=== PATIENT | male | born 2000 | race Caucasian/White ===

== ENCOUNTER 2019-02-08 20:26 | Emergency (ER) | payer OTHER ==
--- NOTE | 2019-02-08 21:19 | ED ---
Abdominal Pain HPI - General Chief Complaint: Abdominal Pain Stated Complaint: Abd pain Time Seen by Provider: 02/08/19 21:18 Source: patient Mode of arrival: ambulatory Limitations: no limitations - History of Present Illness Initial Comments: Isrrael is a 17-year-old male who presents to the emergency department today for evaluation of left lower quadrant abdominal pain that began around 2 AM and is progressively worsened throughout the day. Pain is not associated with any nausea vomiting or change in bowel or bladder habits. Last bowel movement was 1-2 days ago and was normal in color caliber and consistency. He has no history of GI pathology no history of ulcers colitis or Crohn's. No history of any surgeries in the abdomen. No history of kidney stones. Patient denies any concern for sexual transmitted infection denies any penile discharge. - Related Data Previous Rx's Medication Instructions Recorded Amoxicillin 500 mg PO BID 10 Days #20 capsule 02/08/19 Allergies Allergy/AdvReac Type Severity Reaction Status Date / Time No Known Allergies Allergy Verified 02/08/19 20:55 Review of Systems ROS Statement: Those systems with pertinent positive or pertinent negative responses have been documented in the HPI. ROS Other: All systems not noted in ROS Statement are negative. Past Medical History Past Medical History: Unable to Obtain Additional Past Medical History / Comment(s): poor historian History of Any Multi-Drug Resistant Organisms: None Reported Past Surgical History: Unable to Obtain Additional Past Surgical History / Comment(s): poor historian Past Psychological History: No Psychological Hx Reported Smoking Status: Never smoker Past Alcohol Use History: None Reported Past Drug Use History: None Reported General Exam - General Exam Comments Initial Comments: Physical Exam GENERAL: appears uncomfortable HENT: Normocephalic, Atraumatic. Left otitis media EYES: PERRL, EOMI PULMONARY: Unlabored respirations. No audible rales rhonchi or wheezing was noted. CARDIOVASCULAR: There is a regular rate and rhythm without any murmurs gallops or rubs. ABDOMEN: Voluntary guarding in bilateral lower quadrants SKIN: Skin is clear with no lesions or rashes and otherwise unremarkable. : Deferred NEUROLOGIC: Patient is alert and oriented x3. Moving all extremities spontaneously MUSCULOSKELETAL: Normal extremities with adequate strength and full range of motion. No lower extremity swelling or edema. No calf tenderness. PSYCHIATRIC: Normal psychiatric evaluation. Limitations: no limitations Course Vital Signs 02/08/19 02/08/1919 20:54 23:31 00:48 Temperature 98.1 F 98.3 F Pulse Rate 76 59 L 78 Respiratory 18 16 18 Rate Blood Pressure 118/81 97/63 134/90 O2 Sat by Pulse 99 100 100 Oximetry Medical Decision Making - Medical Decision Making She was seen and evaluated history was obtained from the patient History and physical exam revealed bilateral lower quadrant tenderness as well as a left otitis media Urinalysis concerning for urinary tract infection, on further evaluation patient again denies any possibility of sexual transmitted infection, declines testing but is agreeable to them. Treatment. Genitourinary exam was performed by Christophe CORREA, Per patient's preference, who reported normal external exam with no acute pathology identified CT with no acute findings This time I suspect the patient's lower abdominal symptoms are secondary to urinary tract infection. Patient will be treated for UTI as well as empiric treatment for sexual transmitted infections. All cushions pertaining care were answered return parameters discussed patient discharged home in stable condition. - Lab Data Result diagrams: 02/08/19 22:05 02/08/19 22:05 Lab Results 02/08/19 02/08/19 02/08/19 Range/Units 22:05 22:05 22:51 WBC 9.6 (4.0-11.0) k/uL RBC 4.90 (4.30-5.90) m/uL Hgb 15.4 (13.0-17.5) gm/dL Hct 45.1 (39.0-53.0) % MCV 92.1 (80.0-100.0) fL MCH 31.6 (25.0-35.0) pg MCHC 34.3 (31.0-37.0) g/dL RDW 12.8 (11.5-15.5) % Plt Count 237 (150-450) k/uL Neutrophils % 64 % Lymphocytes % 20 % Monocytes % 9 % Eosinophils % 4 % Basophils % 1 % Neutrophils # 6.2 (1.3-7.7) k/uL Lymphocytes # 1.9 (1.0-4.8) k/uL Monocytes # 0.8 (0-1.0) k/uL Eosinophils # 0.4 (0-0.7) k/uL Basophils # 0.1 (0-0.2) k/uL Sodium 141 (137-145) mmol/L Potassium 3.8 (3.5-5.1) mmol/L Chloride 105 (98-107) mmol/L Carbon Dioxide 28 (22-30) mmol/L Anion Gap 8 mmol/L BUN 8 L (9-20) mg/dL Creatinine 0.78 (0.66-1.25) mg/dL Est GFR (CKD-EPI)AfAm >90 (>60 ml/min/1.73 sqM) Est GFR (CKD-EPI)NonAf >90 (>60 ml/min/1.73 sqM) Glucose 89 (74-99) mg/dL Calcium 9.8 (8.4-10.2) mg/dL Total Bilirubin 0.6 (0.2-1.3) mg/dL AST 23 (17-59) U/L ALT 19 (4-49) U/L Alkaline Phosphatase 104 (38-126) U/L Total Protein 7.6 (6.3-8.2) g/dL Albumin 4.5 (3.5-5.0) g/dL Amylase 81 (30-110) U/L Lipase 27 (23-300) U/L Urine Color Yellow Urine Appearance Clear (Clear) Urine pH 7.0 (5.0-8.0) Ur Specific [place] 1.019 (1.001-1.035) Urine Protein Trace H (Negative) Urine Glucose (UA) Negative (Negative) Urine Ketones 1+ H (Negative) Urine Blood Negative (Negative) Urine Nitrite Negative (Negative) Urine Bilirubin Negative (Negative) Urine Urobilinogen 2.0 (<2.0) mg/dL Ur Leukocyte Esterase Moderate H (Negative) Urine RBC 1 (0-5) /hpf Urine WBC 18 H (0-5) /hpf Urine Mucus Rare H (None) /hpf Disposition Clinical Impression: UTI (urinary tract infection), Left otitis media Disposition: HOME SELF-CARE Condition: Stable Instructions (If sedation given, give patient instructions): Urinary Tract Infection in Men (ED) Prescriptions: Amoxicillin 500 mg PO BID 10 Days #20 capsule Is patient prescribed a controlled substance at d/c from ED?: No Referrals: None,Stated [Primary Care Provider] - 1-2 days
[2019-02-08] MEDS ORDERED: SODIUM CHLORIDE 0.9% 1,000 ML IV STA (21:33)
[2019-02-08 22:23] LABS: Basophils # (A) 0.1 k/uL (0-0.2); Basophils % (A) 1 %; Eosinophils # (A) 0.4 k/uL (0-0.7); Eosinophils % (A) 4 %; HCT 45.1 % (39.0-53.0); HGB 15.4 gm/dL (13.0-17.5); Lymphocytes # (A) 1.9 k/uL (1.0-4.8); Lymphocytes % (A) 20 %; MCH 31.6 pg (25.0-35.0); MCHC 34.3 g/dL (31.0-37.0); MCV 92.1 fL (80.0-100.0); Monocytes # (A) 0.8 k/uL (0-1.0); Monocytes % (A) 9 %; Neutrophils # (A) 6.2 k/uL (1.3-7.7); Neutrophils % (A) 64 %; Platelet Count 237 k/uL (150-450); RDW 12.8 % (11.5-15.5); WBC 9.6 k/uL (4.0-11.0)
[2019-02-08 22:40] LABS: ALT 19 U/L (4-49); AST 23 U/L (17-59); African American GFR (CKD) >90 (>60 ml/min/1.73 sqM); Albumin 4.5 g/dL (3.5-5.0); Alkaline Phosphatase 104 U/L (38-126); Amylase 81 U/L (30-110); Anion Gap 8 mmol/L; Blood Urea Nitrogen 8 mg/dL (9-20); Calcium 9.8 mg/dL (8.4-10.2); Carbon Dioxide 28 mmol/L (22-30); Chloride 105 mmol/L (98-107); Glucose 89 mg/dL (74-99); Non-African American GFR(CKD) >90 (>60 ml/min/1.73 sqM); Potassium 3.8 mmol/L (3.5-5.1); Sodium 141 mmol/L (137-145); Total Bilirubin 0.6 mg/dL (0.2-1.3); Total Protein 7.6 g/dL (6.3-8.2)
[2019-02-08 23:19] LABS: Appearance,Urine Clear (Clear); Bilirubin,Urine Negative (Negative); Blood,Urine Negative (Negative); Color,Urine Yellow; Glucose,Urine (UA) Negative (Negative); Ketones,Urine 1+ (Negative); Leukocyte Esterase,Urine Moderate (Negative); Mucus,Urine Rare /hpf; Nitrite,Urine Negative (Negative); Protein,Urine Trace (Negative); RBC,Urine 1 /hpf (0-5); Specific Gravity,Urine 1.019 (1.001-1.035); WBC,Urine 18 /hpf (0-5)
--- NOTE | 2019-02-08 23:19 | CT ---
EXAMINATION TYPE: CT abdomen pelvis w con DATE OF EXAM: 02/08/2019 COMPARISON: 06/02/2017 HISTORY: Patient presents with abdominal pain. CT DLP: 482.7 mGycm Automated exposure control for dose reduction was used. CONTRAST: Performed with IV Contrast, patient injected with 100mL mL of Isovue 300. Lung bases are clear. There is no pleural effusion. Heart appears normal. Liver spleen pancreas gallbladder stomach appear normal. Bile ducts are not dilated. There is no adrenal mass. Kidneys show satisfactory contrast opacification. There is no hydronephrosi s. Ureters are not dilated. There is no retroperitoneal adenopathy. Bladder is almost empty. There is no inguinal hernia. There is tiny amount of free fluid in the pelvis. There is no mesenteric edema. There is no ascites or free air. There is no evidence of a bowel obstru ction. Appendix is not seen with certainty. There is no sign of thickened appendix. The lumbar vertebra have normal alignment. Posterior elements are intact. There is no compression fra cture. Bony pelvis is intact. IMPRESSION: Negative CT scan abdomen and pelvis. I do not see a cause for abdominal pain.
[2019-02-08] MEDS ORDERED: PHENAZOPYRIDINE 200 MG TAB PO STA (23:29)
[2019-02-08] MEDS ORDERED: AZITHROMYCIN 500 MG TAB PO STA (23:56)
[2019-02-08] MEDS ORDERED: cefTRIAXone 250 MG VIAL IM STA (23:56)
[2019-02-09 00:49] VITALS: BP 134/90; PULSE 78; RESP 18; TEMP 98.3
== END 2019-02-09 00:50 | disposition home or self-care (01) ==
LOC: EC 20:26
DX: N39.0 Urinary tract infection, site not specified (principal); H66.92 Otitis media, unspecified, left ear; A64 Unspecified sexually transmitted disease
CPT/HCPCS: 36415; 80053; 82150; 83690; 85025; 81001; 87086; 74177; 99284; 96365; 96372; J0696 ×2; Q9967

== ENCOUNTER 2020-04-27 10:46 | Emergency (ER) | payer OTHER ==
[2020-04-27 10:52] VITALS: BP 128/80; PULSE 75; RESP 18; TEMP 98
--- NOTE | 2020-04-27 11:16 | ED ---
Abdominal Pain HPI - General Chief Complaint: Abdominal Pain Stated Complaint: Hernia Time Seen by Provider: 04/27/20 10:55 Source: patient, RN notes reviewed Mode of arrival: ambulatory Limitations: no limitations - History of Present Illness Initial Comments: 19-year-old male presents emergency Department chief complaint of left-sided groin, scrotal pain and swelling. Patient states her bilateral one week ago. Patient states it started after he lifted a large foam roll. Patient states he felt instant pain. Patient states the pain is anticipated surgery presents to the emergency Department. He denies any nausea vomiting diarrhea constipation. No dysuria no hematuria. - Related Data Previous Rx's Medication Instructions Recorded Amoxicillin 500 mg PO BID 10 Days #20 capsule 02/08/19 Ibuprofen [Motrin] 600 mg PO Q8HR PRN #20 tab 04/27/20 Allergies Allergy/AdvReac Type Severity Reaction Status Date / Time No Known Allergies Allergy Verified 04/27/20 10:52 Review of Systems ROS Statement: Those systems with pertinent positive or pertinent negative responses have been documented in the HPI. ROS Other: All systems not noted in ROS Statement are negative. Past Medical History Past Medical History: No Reported History Additional Past Medical History / Comment(s): poor historian History of Any Multi-Drug Resistant Organisms: None Reported Past Surgical History: No Surgical Hx Reported Additional Past Surgical History / Comment(s): poor historian Past Psychological History: No Psychological Hx Reported Smoking Status: Current every day smoker Past Alcohol Use History: None Reported Past Drug Use History: None Reported General Exam Limitations: no limitations General appearance: alert, in no apparent distress Head exam: Present: atraumatic, normocephalic, normal inspection Neck exam: Present: normal inspection. Absent: tenderness, meningismus, lymphadenopathy Respiratory exam: Present: normal lung sounds bilaterally. Absent: respiratory distress, wheezes, rales, rhonchi, stridor Cardiovascular Exam: Present: regular rate, normal rhythm, normal heart sounds. Absent: systolic murmur, diastolic murmur, rubs, gallop, clicks GI/Abdominal exam: Present: soft, normal bowel sounds, hernia (Left inguinal reducible). Absent: distended, tenderness, guarding, rebound, rigid exam: Present: testicular tenderness, scrotal swelling, other (Hernia palpated) Back exam: Absent: CVA tenderness (R), CVA tenderness (L) Neurological exam: Present: alert Skin exam: Present: warm, dry, intact, normal color. Absent: rash Course Vital Signs 04/27/20 10:47 Temperature 98.0 F Pulse Rate 75 Respiratory 18 Rate Blood Pressure 128/80 O2 Sat by Pulse 99 Oximetry Medical Decision Making - Medical Decision Making Ultrasound does not reveal evidence of hernia though does show varicocele. Patient likely has a hernia. Patient will follow-up with surgeon return parameters discussed. Disposition Clinical Impression: Left inguinal hernia, Left varicocele Disposition: HOME SELF-CARE Condition: Stable Instructions (If sedation given, give patient instructions): Inguinal Hernia (ED), Varicocele (ED) Additional Instructions: Please return to the Emergency Department if symptoms worsen or any other concerns. Prescriptions: Ibuprofen [Motrin] 600 mg PO Q8HR PRN #20 tab PRN Reason: Pain Is patient prescribed a controlled substance at d/c from ED?: No Referrals: None,Stated [Primary Care Provider] - 1-2 days Falguni Gallegos MD [STAFF PHYSICIAN] - 1-2 days Time of Disposition: 12:16
--- NOTE | 2020-04-27 12:09 | US ---
EXAMINATION TYPE: US groin LT DATE OF EXAM: 04/27/2020 COMPARISON: NONE CLINICAL HISTORY: pain swelling. Pain left patient lifting heavy things. Scanned left groin area no evidence of hernia visualized. IMPRESSION: No diagnostic evidence of hernia. If symptoms persist consider CT scan.
--- NOTE | 2020-04-27 12:11 | US ---
EXAMINATION TYPE: US scrotum with doppler. Grayscale and color Doppler Duplex imaging performed of lars yen scrotum. DATE OF EXAM: 04/27/2020 COMPARISON: NONE CLINICAL HISTORY: pain swelling. Pain left patient heavy lifting. EXAM MEASUREMENTS: TESTICLES: Right Testicle: 4.2 x 1.9 x 3.5 cm Left Testicle: 4.1 x 1.8 x 2.6 cm EPIDIDYMIS HEAD: Right Epididymis: .7 x .8 cm Left Epididymis: Not well visualized. Doppler performed to assess for testicular vascularity; good bilateral color flow and waveforms are s een. There is no evidence of testicular torsion. Presence of hydroceles: no Presence of varicoceles: Yes left. IMPRESSION: 1. Left-sided varicocele
[2020-04-27] MEDS ORDERED: ACET/COD 300 MG/30 MG STARTER PACK 6 TAB BTL PO STA (12:16)
== END 2020-04-27 12:35 | disposition home or self-care (01) ==
LOC: EC 10:46
DX: I86.1 Scrotal varices (principal); K40.90 Unilateral inguinal hernia, without obstruction or gangrene, not specified as recurrent; F17.200 Nicotine dependence, unspecified, uncomplicated
CPT/HCPCS: 76870; 93975; 99284

== ENCOUNTER 2021-08-25 17:32 | Emergency (ER) | payer OTHER ==
[2021-08-25 17:41] VITALS: BP 121/78; PULSE 93; RESP 20; TEMP 98.2
[2021-08-25] MEDS ORDERED: LIDOCAINE 1% INJ 10MG/ML (5 ML VIAL-PF) SQ ONE (17:51)
[2021-08-25] MEDS ORDERED: HYDROcodone/APAP 7.5-325MG 1 EACH TAB PO ONE (17:52)
--- NOTE | 2021-08-25 18:39 | ED ---
Upper Extremity HPI - General Chief Complaint: Extremity Injury, Upper Stated Complaint: Fish Hook in finger Time Seen by Provider: 08/25/21 17:43 Source: patient Mode of arrival: ambulatory Limitations: no limitations - History of Present Illness Initial Comments: Patient is a 21-year-old male who presents with fishhook in his right middle finger. Patient reports moderate pain. No numbness and tingling. States last tetanus was 3 years ago. - Related Data Previous Rx's Medication Instructions Recorded Amoxicillin 500 mg PO BID 10 Days #20 capsule 02/08/19 Ibuprofen [Motrin] 600 mg PO Q8HR PRN #20 tab 04/27/20 Allergies Allergy/AdvReac Type Severity Reaction Status Date / Time No Known Allergies Allergy Verified 08/25/21 17:41 Review of Systems ROS Statement: Those systems with pertinent positive or pertinent negative responses have been documented in the HPI. ROS Other: All systems not noted in ROS Statement are negative. Past Medical History Past Medical History: No Reported History Additional Past Medical History / Comment(s): poor historian History of Any Multi-Drug Resistant Organisms: None Reported Past Surgical History: No Surgical Hx Reported Additional Past Surgical History / Comment(s): poor historian Past Psychological History: No Psychological Hx Reported Smoking Status: Current every day smoker Past Alcohol Use History: None Reported Past Drug Use History: None Reported General Exam Limitations: no limitations General appearance: alert, in no apparent distress Head exam: Present: atraumatic, normocephalic, normal inspection Respiratory exam: Present: normal lung sounds bilaterally. Absent: respiratory distress, wheezes, rales, rhonchi, stridor Cardiovascular Exam: Present: regular rate, normal rhythm, normal heart sounds. Absent: systolic murmur, diastolic murmur, rubs, gallop, clicks Extremities exam: Present: full ROM, other (fish hook over tip of right middle finger. Neurovascularly intact) Neurological exam: Present: alert, oriented X3, CN II-XII intact Psychiatric exam: Present: normal affect, normal mood Skin exam: Present: warm, dry, intact, normal color. Absent: rash Course Vital Signs 08/25/21 17:39 Temperature 98.2 F Pulse Rate 93 Respiratory 20 Rate Blood Pressure 121/78 O2 Sat by Pulse 99 Oximetry Procedures - Forgein Body Removal Soft Tissue Consent Obtained: verbal consent Site: upper extremity (right middle finger) Anesthetic Used: lidocaine 1% Foreign Body Suspected: Fish Hook Foreign Body Removed: yes Foreign Body Removal Technique: Instrumentation Patient Tolerated Procedure: well, no complications Medical Decision Making - Medical Decision Making This is a 21-year-old male who presents with fishhook in right middle finger. Thorough history and examination were performed. The fishhook is located at the tip of the right middle finger anteriorly. Neurovascularly intact. The region was cleaned thoroughly. A nerve block was performed. The fishhook was removed without complication. Patient tolerated the procedure well. Wound care education discussed in detail. Patient to follow up with his primary care provider in one to 2 days. Return parameters discussed. Patient verbalizes understanding and is agreeable to this plan. Dr. Jacobsen is my attending. Disposition Clinical Impression: [place] injury to finger Disposition: HOME SELF-CARE Condition: Good Instructions (If sedation given, give patient instructions): Acute Wound Care (ED) Additional Instructions: Keep wound clean and dry. Wash with mild soap. Follow-up with primary care provider in one to 2 days. Return to the emergency department experience new, concerning, or worsening symptoms. Is patient prescribed a controlled substance at d/c from ED?: No Referrals: None,Stated [Primary Care Provider] - 1-2 days Time of Disposition: 18:39
== END 2021-08-25 18:54 | disposition home or self-care (01) ==
LOC: EC 17:32
DX: S60.452A Superficial foreign body of right middle finger, initial encounter (principal); F17.200 Nicotine dependence, unspecified, uncomplicated; W45.8XXA Other foreign body or object entering through skin, initial encounter
CPT/HCPCS: 20520; 99283; J2001

== ENCOUNTER 2022-08-27 02:22 | Inpatient (IN) | payer MEDICAID, OTHER ==
[2022-08-27] MEDS ORDERED: hydrOXYzine HCL 25 MG TAB PO PRN (05:19)
[2022-08-27] MEDS ORDERED: MAG HYDROX/AL HYDROX/SIMETH 30 ML CUP PO PRN (05:19)
[2022-08-27] MEDS ORDERED: hydrOXYzine HCL 50 MG/ML 1 ML VIAL IM PRN (05:19)
[2022-08-27] MEDS ORDERED: ACETAMINOPHEN TAB 325 MG TAB PO PRN (05:19)
[2022-08-27] MEDS ORDERED: MAGNESIUM HYDROXIDE 2,400 MG/30 ML CUP PO PRN (05:19)
[2022-08-27] MEDS ORDERED: ALBUTEROL INHALER 60 PUFF/8 GM INHALER (MHU) INHALATION PRN (05:23)
[2022-08-27 07:41] LABS: Basophils % (A) 0 %; Eosinophils # (A) 0.1 k/uL (0-0.7); Eosinophils % (A) 1 %; HCT 50.3 % (39.0-53.0); HGB 16.6 gm/dL (13.0-17.5); Lymphocytes # (A) 2.1 k/uL (1.0-4.8); Lymphocytes % (A) 15 %; MCH 31.6 pg (25.0-35.0); MCHC 32.9 g/dL (31.0-37.0); Mean Platelet Volume 7.7; Monocytes # (A) 0.8 k/uL (0-1.0); Monocytes % (A) 6 %; Neutrophils # (A) 10.4 k/uL (1.3-7.7); Neutrophils % (A) 76 %; Platelet Count 305 k/uL (150-450); RBC 5.24 m/uL (4.30-5.90); RDW 12.4 % (11.5-15.5); WBC 13.7 k/uL (3.8-10.6)
[2022-08-27 07:54] LABS: ALT 26 U/L (4-49); AST 28 U/L (17-59); African American GFR (CKD) >90 (>60 ml/min/1.73 sqM); Albumin 4.9 g/dL (3.5-5.0); Alkaline Phosphatase 63 U/L (38-126); Anion Gap 11 mmol/L; Bilirubin, Delta 0.2 mg/dL (0.0-0.2); Bilirubin,Unconjugated 0.7 mg/dL (0.0-1.1); Blood Urea Nitrogen 9 mg/dL (9-20); Calcium 9.8 mg/dL (8.4-10.2); Carbon Dioxide 27 mmol/L (22-30); Chloride 102 mmol/L (98-107); Glucose 104 mg/dL (74-99); Non-African American GFR(CKD) >90 (>60 ml/min/1.73 sqM); Potassium 4.6 mmol/L (3.5-5.1); Sodium 140 mmol/L (137-145); Total Bilirubin 0.9 mg/dL (0.2-1.3); Total Protein 7.8 g/dL (6.3-8.2)
--- NOTE | 2022-08-27 08:49 | ED ---
Psych HPI - General Chief Complaint: Psychiatric Symptoms Stated Complaint: Mental health Time Seen by Provider: 08/27/22 02:46 Source: police Mode of arrival: ambulatory - History of Present Illness Initial Comments: 22-year-old male presents to the emergency department after a suicide attempt. Patient is brought in by police. They were called to a house where it was reported that the patient attempted to hang himself with a [employer]. Girlfriend had to come down. He states that he got in an argument with his girlfriend and walked out of the house. States he was walking down the road when please caught up with him. He denies attempting to harm himself. He denies depression or history of psychiatric disease. He denies alcohol and drug use. No alleviating, precipitating modifying factors - Related Data Previous Rx's Medication Instructions Recorded Amoxicillin 500 mg PO BID 10 Days #20 capsule 02/08/19 Ibuprofen [Motrin] 600 mg PO Q8HR PRN #20 tab 04/27/20 Allergies Allergy/AdvReac Type Severity Reaction Status Date / Time No Known Allergies Allergy Verified 08/27/22 05:25 Review of Systems ROS Statement: Those systems with pertinent positive or pertinent negative responses have been documented in the HPI. ROS Other: All systems not noted in ROS Statement are negative. Past Medical History Past Medical History: No Reported History Additional Past Medical History / Comment(s): poor historian History of Any Multi-Drug Resistant Organisms: None Reported Past Surgical History: No Surgical Hx Reported Additional Past Surgical History / Comment(s): poor historian Past Psychological History: No Psychological Hx Reported Smoking Status: Current every day smoker, Vaper Past Alcohol Use History: Occasional Past Drug Use History: Marijuana General Exam Limitations: no limitations Course Vital Signs 08/27/22 02:30 Temperature 99.1 F Pulse Rate 105 H Respiratory 18 Rate Blood Pressure 135/81 O2 Sat by Pulse 96 Oximetry Medical Decision Making - Medical Decision Making Was pt. sent in by a medical professional or institution ([facility], [facility], urgent care, hospital, or long-term...) When possible be specific @ -[No] Did you speak to anyone other than the patient for history (EMS, parent, family, police, friend...)? What history was obtained from this source @ -[No] Did you review nursing and triage notes (agree or disagree)? Why? @ -[I reviewed and agree with nursing and triage notes] Were old charts reviewed (outside hosp., previous admission, EMS record, old EKG, old radiological studies, urgent care reports/EKG's, long-term records)? Report findings @ -[No old charts were reviewed] Differential Diagnosis (chest pain, altered mental status, abdominal pain women, abdominal pain men, vaginal bleeding, weakness, fever, dyspnea, syncope, headache, dizziness, GI bleed, back pain, seizure, CVA, palpatations, mental health, musculoskeletal)? @ -[not applicable] EKG interpreted by me (3pts min.). @ -[As above] X-rays interpreted by me (1pt min.). @ -[None done] CT interpreted by me (1pt min.). @ -[None done] U/S interpreted by me (1pt. min.). @ -[None done] What testing was considered but not performed or refused? (CT, X-rays, U/S, labs)? Why? @ -[None] What meds were considered but not given or refused? Why? @ -[None] Did you discuss the management of the patient with other professionals (professionals i.e. Dr., PA, [employer], lab, RT, psych nurse, social work lecturer, copying machine mechanic, teacher, parachute officer, shelter case manager)? Give summary @ -[No] Was smoking cessation discussed for >3mins.? @ -[No] Was critical care preformed (if so, how long)? @ -[No] Were there social determinants of health that impacted care today? How? ( Homelessness, low income, unemployed, alcoholism, drug addiction, transportation, low edu. Level, literacy, decrease access to med. care, penitentiary, rehab)? @ -[No] Was there de-escalation of care discussed even if they declined (Discuss DNR or withdrawal of care, Hospice)? DNR status @ -[No] What co-morbidities impacted this encounter? (DM, HTN, Smoking, COPD, CAD, Cancer, CVA, ARF, Chemo, Hep., AIDS, mental health diagnosis, sleep apnea, morbid obesity)? @ -[None] Was patient admitted / discharged? Hospital course, mention meds given and route, prescriptions, significant lab abnormalities, going to OR and other pertinent info. @ -Upon arrival patient was placed into room 12.History and physical exam was performed. Patient is unwilling to talk. Denies attempting to harm himself. He does speak with EPS nurse they do feel that the patient be admitted. I do fill out a certification on the patient Undiagnosed new problem with uncertain prognosis? @ -[No] Drug Therapy requiring intensive monitoring for toxicity (Heparin, Nitro, Insulin, Cardizem)? @ -[No] Were any procedures done? @ -[No] Diagnosis/symptom? @ -[default] Acute, or Chronic, or Acute on Chronic? @ -[default] Uncomplicated (without systemic symptoms) or Complicated (systemic symptoms)? @ -[default] Side effects of treatment? @ -[No] Exacerbation, Progression, or Severe Exacerbation? @ -[No] Poses a threat to life or bodily function? How? (Chest pain, [place], [place], pneumonia, PE, COPD, DKA, ARF, appy, cholecystitis, CVA, Diverticulitis, Homicidal, Suicidal, threat to staff... and all critical care pts) @ -[No] - Lab Data Result diagrams: 08/27/22 07:15 08/27/22 07:15 Lab Results 08/27/22 Range/Units 03:45 Coronavirus (PCR) Not Detected (Not Detectd) Disposition Disposition: ADMITTED IP TO THIS [facility] Condition: Undetermined
[2022-08-27] MEDS ORDERED: NICOTINE 14MG/24HR PATCH TRANSDERM SCH (09:00)
[2022-08-27] MEDS: SERTRALINE 25 MG TAB PO SCH (12:00)
[2022-08-27] MEDS: lamoTRIgine 25 MG TAB PO SCH ×2 (12:00→20:47)
[2022-08-27 12:17] LABS: Chol/HDL Ratio 2.45 Ratio; LDL Cholesterol,Calculated 68.2 mg/dL (0.0-131.0); VLDL Calculation 11.18 mg/dL (5.00-40.00)
--- NOTE | 2022-08-27 13:01 | P.HP ---
Psychiatric H&P - . H&P Date: 08/27/22 History & Physical: Allergies Allergy/AdvReac Type Severity Reaction Status Date / Time No Known Allergies Allergy Verified 08/27/22 05:25 Vital Signs Temp 98.2 F 08/27/22 05:55 Pulse 76 08/27/22 05:55 Resp 15 08/27/22 05:55 BP 127/77 08/27/22 05:55 Pulse Ox 94 L 08/27/22 05:55 FiO2 Intake & Output 08/26/22 08/27/22 08/27/22 18:59 06:59 18:59 Weight 55.537 kg Laboratory Last Values WBC 13.7 k/uL (3.8-10.6) H 08/27/22 07:15 RBC 5.24 m/uL (4.30-5.90) 08/27/22 07:15 Hgb 16.6 gm/dL (13.0-17.5) 08/27/22 07:15 Hct 50.3 % (39.0-53.0) 08/27/22 07:15 MCV 96.0 fL (80.0-100.0) 08/27/22 07:15 MCH 31.6 pg (25.0-35.0) 08/27/22 07:15 MCHC 32.9 g/dL (31.0-37.0) 08/27/22 07:15 RDW 12.4 % (11.5-15.5) 08/27/22 07:15 Plt Count 305 k/uL (150-450) 08/27/22 07:15 MPV 7.7 08/27/22 07:15 Neutrophils % 76 % 08/27/22 07:15 Lymphocytes % 15 % 08/27/22 07:15 Monocytes % 6 % 08/27/22 07:15 Eosinophils % 1 % 08/27/22 07:15 Basophils % 0 % 08/27/22 07:15 Neutrophils # 10.4 k/uL (1.3-7.7) H 08/27/22 07:15 Lymphocytes # 2.1 k/uL (1.0-4.8) 08/27/22 07:15 Monocytes # 0.8 k/uL (0-1.0) 08/27/22 07:15 Eosinophils # 0.1 k/uL (0-0.7) 08/27/22 07:15 Basophils # 0.0 k/uL (0-0.2) 08/27/22 07:15 Sodium 140 mmol/L (137-145) 08/27/22 07:15 Potassium 4.6 mmol/L (3.5-5.1) 08/27/22 07:15 Chloride 102 mmol/L (98-107) 08/27/22 07:15 Carbon Dioxide 27 mmol/L (22-30) 08/27/22 07:15 Anion Gap 11 mmol/L 08/27/22 07:15 BUN 9 mg/dL (9-20) 08/27/22 07:15 Creatinine 0.91 mg/dL (0.66-1.25) 08/27/22 07:15 Est GFR (CKD-EPI)AfAm >90 (>60 ml/min/1.73 sqM) 08/27/22 07:15 Est GFR (CKD-EPI)NonAf >90 (>60 ml/min/1.73 sqM) 08/27/22 07:15 Glucose 104 mg/dL (74-99) H 08/27/22 07:15 Calcium 9.8 mg/dL (8.4-10.2) 08/27/22 07:15 Total Bilirubin 0.9 mg/dL (0.2-1.3) 08/27/22 07:15 Conjugated Bilirubin 0.0 mg/dL (0.0-0.3) 08/27/22 07:15 Unconjugated Bilirubin 0.7 mg/dL (0.0-1.1) 08/27/22 07:15 Delta Bilirubin 0.2 mg/dL (0.0-0.2) 08/27/22 07:15 AST 28 U/L (17-59) 08/27/22 07:15 ALT 26 U/L (4-49) 08/27/22 07:15 Alkaline Phosphatase 63 U/L (38-126) 08/27/22 07:15 Total Protein 7.8 g/dL (6.3-8.2) 08/27/22 07:15 Albumin 4.9 g/dL (3.5-5.0) 08/27/22 07:15 Coronavirus (PCR) Not Detected (Not Detectd) 08/27/22 03:45 08/27/22 10:25 IDENTIFYING DATA: Patient is a 22-year-old male, currently lives with his sister, he has 2 kids, he works on a farm with horses. HPI: Patient presented to the hospital yesterday and evaluated in the ER. Patient was petitioned by motorcycle police who apparently was shown a video of patient attending to harm himself by hanging himself captured by his girlfriend after an argument. Patient was admitted involuntarily to the mental health unit last night. Patient was seen lying in bed today was agreeable to strict technical writer and editor. Patient had a poor hygiene and grooming, constricted in his affect, poor eye contact. He was very evasive and guarded about his need for hospitalization and minimizing his suicide attempt. He claims that his girlfriend was lying about what had occurred. He claims that he was not trying to harm himself. He states that he was trying to "get away from her" and go to his sister's house. He states that the biomass power plant manager picked him up and brought him in the hospital and he does not know why. He does not need believe that he needs medications are treatment in the hospital. He states that he did twist his leg and popped his knee yesterday before coming into the hospital. He claims that he is "doing fine" denying any depression or anxiety at this time. He claims that he is sleeping fairly and has a fair appetite.. Very poor judgment and insight. Patient denies any suicidal or homicidal ideations intent or plan. At this time patient denies any auditory or visual hallucinations. Patient denies any flight of ideas racing thoughts and increased in goal directed behavior. Patient admits to using cigarettes only, patient refused to give UDS at this time. PAST PSYCHIATRIC HISTORY: Patient states that she has a history of depression. Patient denies being on any psychiatric medications. Patient denies any previous psychiatric hospitalizations. Patient denies any psychiatric outpatient follow- up. Patient denies any history of suicide attempts in the past. Past Medical History: No Reported History Additional Past Medical History / Comment(s): poor historian History of Any Multi-Drug Resistant Organisms: None Reported Past Surgical History: No Surgical Hx Reported Additional Past Surgical History / Comment(s): poor historian Past Psychological History: No Psychological Hx Reported Smoking Status: Current every day smoker, Vaper Past Alcohol Use History: Occasional Past Drug Use History: Marijuana ALLERGIES: as per EMR CHEMICAL DEPENDENCY HISTORY: as per HPI FAMILY PSYCHIATRIC/SUBSTANCE USE HISTORY: denies SOCIAL HISTORY: Patient was born and raised in [place] and also in [facility]. He states that he completed high school, he has 2 kids, he currently works on a farm with horses. He denies any legal history. He currently lives with his sister. MENTAL STATUS EXAM: General Appearance: Patient appears to be thin, short in stature, stated age is alert, vague, evasive. Patient appears to have poor hygiene and grooming. Behavior: Patient is seated without any agitated behavior. Poor eye contact. Evasive and minimizing. Speech: Patient's speech is fluent and nonpressured. Constricted, concrete. Mood/Affect: Patient reports their mood is "okay", affect is incongruent and constricted. Suicidality/Homicidality: Patient denies having any homicidal ideation intent or plan. Denies any suicidal ideations intent or plan Perceptions: Patient denies any visual hallucinations and denies any auditory hallucinations Though content/process: Patient is denying what is on the petition, poor insight, not endorsing any paranoia or delusions. [place]. Memory and concentration: AOX3, grossly intact for the purposes of this session. Can spell "WORLD" backwards Judgment and insight: poor STRENGTHS/WEAKNESSES: strength is that patient is resilient. Weakness is that patient has poor judgment and is impulsive INTELLECT: average IMPRESSIONS: Depressive disorder unspecified suicide attempt by hanging self nicotine dependence PLAN: -Patient is admitted under involuntary status to MHU for stabilization of psychiatric symptoms and safety. Patient has not signed adult voluntary form and medication consent and is placed in patient's chart. A second certification was completed and along with petition will be filed for court. -Medications : Will start patient on Zoloft 25 mg daily for mood/anxiety, Lamictal 25 mg twice a day for mood stabilization/depression. ordered Rt knee x ray for knee trauma and swelling. -Ativan and Haldol PRN for agitation/aggression -Patient was informed of the risks, benefits and side effects of the medication and patient refused to sign medication consent. -Internal Medicine consult to perform medical evaluation and physical. -NRT - nicotine patch -SW on board for discharge planning. Encourage patient to participate in groups to work on coping skills. Will await deferral and court date. 08/27/22 12:00 08/27/22 13:00
--- NOTE | 2022-08-27 16:42 | XR ---
EXAMINATION TYPE: XR knee complete RT DATE OF EXAM: 08/27/2022 4:33 PM INDICATION: Patient age:Male; 22 years old; Reason for study: trauma, twisting of knee and swelling; COMPARISON: None. TECHNIQUE: The Right knee(s) was examined in Frontal, lateral and oblique projections. FINDINGS: No evidence of any acute osseous pathology, soft tissue swelling, or joint effusion is no roula. IMPRESSION: No acute osseous pathology.
--- NOTE | 2022-08-27 17:34 | P.HPMEDMHU ---
History of Present Illness H&P Date: 08/27/22 Chief Complaint: Suicide idealization Patient is a 22-year-old male with a past medical history of ADHD who was admitted to the [facility] for suicide idealization. Patient states that he does beeping. Patient states that he was on Adderall until he was 17 years old. He states that he then lost his insurance so is no longer getting prescribed Adderall. Patient denies any chest pain or shortness of breath or bone pain nausea vomiting or diarrhea. Review of Systems 10 ROS reviewed and are negative except as noted in HPI Past Medical History Past Medical History: No Reported History Additional Past Medical History / Comment(s): poor historian History of Any Multi-Drug Resistant Organisms: None Reported Past Surgical History: No Surgical Hx Reported Additional Past Surgical History / Comment(s): poor historian Smoking Status: Current every day smoker, Vaper Medications and Allergies Home Medications Medication Instructions Recorded Confirmed Type Amoxicillin 500 mg PO BID 10 Days #20 capsule 02/08/19 Rx Ibuprofen [Motrin] 600 mg PO Q8HR PRN #20 tab 04/27/20 Rx Allergies Allergy/AdvReac Type Severity Reaction Status Date / Time No Known Allergies Allergy Verified 08/27/22 05:25 Physical Exam Osteopathic Statement: *. No significant issues noted on an osteopathic structural exam other than those noted in the History and Physical/Consult. Vitals: Vital Signs Temp Pulse Pulse Resp BP BP Pulse Ox 08/27/22 05:55 98.2 F 76 15 127/77 94 L 08/27/22 02:30 99.1 F 105 H 18 135/81 96 Intake and Output 08/27/22 08/27/22 08/27/22 06:59 14:59 22:59 Other: Weight 55.537 kg 55.537 kg General: [Alert and oriented, well nourished, no acute distress]. Eye: [PERRL, EOMI, normal conjunctiva]. HENT: [Normocephalic, clear tympanic membranes, normal hearing, moist oral mucosa, no scleral icterus, no sinus tenderness]. Neck: [Supple, non-tender, no carotid bruits, no JVD, no lymphadenopathy]. Lungs: [Clear to auscultation and percussion, non-labored respiration]. Heart: [Normal rate, regular rhythm, no murmur, gallop or edema]. Abdomen: [Soft, non-tender, non-distended, normal bowel sounds, no masses]. Musculoskeletal: [Normal range of motion and strength, no tenderness or swelling]. Skin: [Skin is warm, dry and pink, no rashes or lesions]. Neurologic: [Awake, alert, and oriented X3, CN II-XII intact]. Psychiatric: [Flat affect. Cranial Nerve Examination - Cranial Nerves Cranial Nerve I- Olfactory: Intact Cranial Nerve II- Optic: Intact Cranial Nerve III- Oculomotor: Intact Cranial Nerve IV- Trochlear: Intact Cranial Nerve V- Trigeminal: Intact Cranial Nerve - Abducens: Intact Cranial Nerve VII- Facial: Intact Cranial Nerve VIII- Auditory: Intact Cranial Nerve IX- Glossopharyngeal: Intact Cranial Nerve X- Vagus: Intact Cranial Nerve XI- Accessory: Intact Cranial Nerve XII- Hypoglossal: Intact Results CBC & Chem 7: 08/27/22 07:15 08/27/22 07:15 Labs: Abnormal Lab Results - Last 24 Hours (Table) 08/27/22 08/27/22 Range/Units 07:15 07:15 WBC 13.7 H (3.8-10.6) k/uL Neutrophils # 10.4 H (1.3-7.7) k/uL Glucose 104 H (74-99) mg/dL Thrombosis Risk Factor Assmnt - Choose All That Apply Any of the Below Risk Factors Present?: No Other Risk Factors: No Other congenital or acquired thrombophilia - If yes, enter type in comment: No Thrombosis Risk Factor Assessment Level: Very Low Risk Assessment and Plan Assessment: Patient is a 22-year-old male with a past medical history of ADHD who was admitted to the [facility] for suicide idealization. Patient states that he does beeping. Patient states that he was on Adderall until he was 17 years old. He states that he then lost his insurance so is no longer getting prescribed Adderall. Patient denies any chest pain or shortness of breath or bone pain nausea vomiting or diarrhea. Vaping Patient counseled that he should stop vaping Mild leukocytosis Likely reactive Continue to monitor for any signs or symptoms of infection Suicide idealization and depression As per previous psychiatric management
[2022-08-28] MEDS: lamoTRIgine 25 MG TAB PO SCH ×2 (08:54→20:40)
[2022-08-28] MEDS: SERTRALINE 25 MG TAB PO SCH (08:54)
[2022-08-28] MEDS: NICOTINE GUM (POLACRILEX) 2 MG GUM BUCCAL PRN ×3 (08:57→19:08)
[2022-08-28] MEDS: NICOTINE 21MG/24HR PATCH TRANSDERM SCH (08:58)
[2022-08-28] MEDS ORDERED: NICOTINE 21MG/24HR PATCH TRANSDERM SCH (09:00)
[2022-08-28] MEDS ORDERED: IBUPROFEN 600 MG TAB PO PRN (11:05)
--- NOTE | 2022-08-28 11:15 | P.PN ---
Progress Note - Text Progress Note Date: 08/28/22 Interval History: Patient was seen lying in his bed this morning and was directable and agreeable to speak with mortgage or loan underwriter in the office. Patient was also noted to be going to some groups including this morning's group with the social welfare research worker. Patient states that today he is doing a bit better, states that he has "less racing thoughts" and also complains that his mood and anxiety of been improving. He continues to have fairly limited insight into his need for being in the hospital, states that he is agreeable to continuing on with treatment. He was asking more questions about the deferral process and also the court hearing date. He claims that he is trying to go to groups, he has been up for meals, mainly keeping to himself while on the unit. At this time patient denies any suicidal or homical ideations, intent or plan. Patient denies any auditory, visual hallucinations and denies any paranoia or delusions. Patient denies any side effects from the medications and has been compliant with meds. He continues to state that he is having right knee pain and we reviewed the x-ray results together. Patient will be ordered ibuprofen and Tylenol when necessary for pain. Mental Status Exam: General Appearance: Patient appears to be thin, short in stature, stated age is alert, vague, evasive, improving. Patient appears to have improving hygiene and grooming. Behavior: Patient is seated without any agitated behavior. Improving eye contact. Less evasive today. Speech: Patient's speech is fluent and nonpressured. Constricted, concrete, improving mildly Mood/Affect: Patient reports their mood is "a bit better", affect is incongruent Suicidality/Homicidality: Patient denies having any homicidal ideation intent or plan. Denies any suicidal ideations intent or plan Perceptions: Patient denies any visual hallucinations and denies any auditory hallucinations Though content/process: Patient is denying what is on the petition, poor insight, not endorsing any paranoia or delusions. [place], improving mildly Memory and concentration: AOX3, grossly intact for the purposes of this session Judgment and insight: poor, improving mildly IMPRESSIONS: Depressive disorder unspecified suicide attempt by hanging self nicotine dependence PLAN: -Patient is admitted under involuntary status to MHU for stabilization of psychiatric symptoms and safety. Patient has not signed adult voluntary form and medication consent and is placed in patient's chart. -Medications : increase Zoloft 50 mg daily for mood/anxiety, continue with Lamictal 25 mg twice a day for mood stabilization/depression. Rt knee x ray for knee trauma and swelling on 08/26 - showed no osseous pathology/fx, will reach out to medicine today to seek further advice on care and if needed orthopeadics consultation? -Ativan and Haldol PRN for agitation/aggression -NRT - nicotine patch -SW on board for discharge planning. Encourage patient to participate in groups to work on coping skills. court date set for 09/05 and deferral date today. likely discharge in 2-3 days if patient signs deferral and is improving.
[2022-08-28] MEDS: DICLOFENAC SODIUM GEL 100 GM TUBE TOPICAL SCH ×2 (17:32→20:40)
[2022-08-28] MEDS: hydrOXYzine pamoate 25 MG CAP PO SCH (22:00)
[2022-08-28] MEDS ORDERED: HYDROcodone/APAP 5-325MG 1 EACH TAB PO STA (23:07)
[2022-08-29] MEDS: NICOTINE GUM (POLACRILEX) 2 MG GUM BUCCAL PRN ×5 (00:15→22:22)
[2022-08-29] MEDS: SERTRALINE 50 MG TAB PO SCH (08:09)
[2022-08-29] MEDS: NICOTINE 21MG/24HR PATCH TRANSDERM SCH (08:09)
[2022-08-29] MEDS: lamoTRIgine 25 MG TAB PO SCH ×2 (08:09→20:39)
[2022-08-29] MEDS: DICLOFENAC SODIUM GEL 100 GM TUBE TOPICAL SCH ×4 (08:10→20:51)
--- NOTE | 2022-08-29 11:10 | P.PN ---
Progress Note - Text Progress Note Date: 08/29/22 Interval History: Patient was seen wandering the hallways this morning and was directable and ag reeable to speak with health technical writer in the office. Patient claims that he has been going to some groups. claims that his mood and anxiety are improving mildly. he claims that the medications have been improving and claims that he feels more future oriented happier about his future and claimed that he wants to stay with his father and states that he ended the relationship that was causing him the most stress. He again spoke about the pain in his right knee and states that the Tylenol and ibuprofen have not been helping much, he was advised to rest his knee more and I sit as well. He has been going to groups and try to participate. At this time patient denies any suicidal or homical ideations, intent or plan. Patient denies any auditory, visual hallucinations and denies any paranoia or delusions. Patient denies any side effects from the medications and has been compliant with meds. Mental Status Exam: General Appearance: Patient appears to be thin, short in stature, stated age is alert, vague, evasive, improving. Patient appears to have improving hygiene and grooming. Behavior: Patient is seated without any agitated behavior. Improving eye contact. Speech: Patient's speech is fluent and nonpressured. Constricted, improving mildly Mood/Affect: Patient reports their mood is "better", affect is congruent Suicidality/Homicidality: Patient denies having any homicidal ideation intent or plan. Denies any suicidal ideations intent or plan Perceptions: Patient denies any visual hallucinations and denies any auditory hallucinations Though content/process: Patient is denying what is on the petition, poor insight, not endorsing any paranoia or delusions. [place], improving mildly Memory and concentration: AOX3, grossly intact for the purposes of this session Judgment and insight: improving mildly IMPRESSIONS: Depressive disorder unspecified suicide attempt by hanging self nicotine dependence PLAN: -Patient is admitted under involuntary status to MHU for stabilization of psychiatric symptoms and safety. Patient has not signed adult voluntary form and medication consent and is placed in patient's chart. -Medications : Zoloft 50 mg daily for mood/anxiety, continue Lamictal 25 mg twice a day for mood stabilization/depression. -Rt knee x ray for knee trauma and swelling on 08/26 - showed no osseous pathology/fx -Ativan and Haldol PRN for agitation/aggression -NRT - nicotine patch -SW on board for discharge planning. Encourage patient to participate in groups to work on coping skills. likely discharge tomorrow back home as patient signed deferral, taking meds and improving psychiatrically. will reach out to orthopeadics today to discuss follow up and plan for knee injury.
[2022-08-29] MEDS: HYDROcodone/APAP 5-325MG 1 EACH TAB PO PRN ×2 (15:00→22:22)
--- NOTE | 2022-08-29 15:10 | P.CNOR ---
History of Present Illness - [facility] Consult date: 08/29/22 Requesting physician: Alfonzo Mora Consult reason: joint pain (Right knee pain), other History of present illness: Patient is a pleasant 22-year-old male who is seen and examined in the mental health unit in regards to his right knee. Patient was transferred to [facility] for further treatment, evaluation, and admission to the mental health unit after reported witnessed attempted suicide by hanging. He is being treated by psychiatry. During his admission to the hospital his mental status has improved. They're currently planning for possible discharge home tomorrow. In regards to his right knee, patient states while sitting in a chair he twisted to the left on 08/27/2022 any heard a pop and felt a pop in his right knee. The pain is in his right medial knee radiating towards the posterior right knee. Since that time he has had some mild swelling at the right knee. He has difficulty with straightening his right knee. He is ambulating with a limp on the right lower extremity. He has taken one tablet of hydrocodone and has been utilizing ice and ibuprofen without significant control of his pain. He did have some benefit with the one tablet of hydrocodone. X-ray imaging has been taken of the right knee. Patient is occurring every day smoker. He has no other reported medical history. Past Medical History Past Medical History: No Reported History Additional Past Medical History / Comment(s): poor historian History of Any Multi-Drug Resistant Organisms: None Reported Past Surgical History: No Surgical Hx Reported Additional Past Surgical History / Comment(s): poor historian Smoking Status: Current every day smoker, Vaper Medications and Allergies Home Medications Medication Instructions Recorded Confirmed Type Amoxicillin 500 mg PO BID 10 Days #20 capsule 02/08/19 Rx Ibuprofen [Motrin] 600 mg PO Q8HR PRN #20 tab 04/27/20 Rx Allergies Allergy/AdvReac Type Severity Reaction Status Date / Time No Known Allergies Allergy Verified 08/27/22 05:25 Physical Examination Physical Exam: Patient is awake, alert, and oriented 3 Vital signs stable Good chest excursion with deep inspiration and expiration No signs or symptoms of DVT on the right; no calf pain on the right Increased right medial knee pain with right knee extension Extensor hallucis longus, plantarflexion, and dorsiflexion positive sustained ri ght lower extremity Increased right medial knee pain with valgus stress No increased right medial knee pain with varus stress No obvious positive Viviana's Mild generalized swelling around the right medial knee No obvious bruising, erythema, or obvious sign of infection over the right knee No significant effusion Patient ambulates with a limp on the right lower extremity No obvious instability of the right knee Results Pertinent studies: X-rays the right knee taken on 08/27/2022: No obvious fracture dislocation at the right knee; no evidence of osteoarthritis; no significant swelling or sign of effusion - Labs Labs: H & H 08/27/22 Range/Units 07:15 Hgb 16.6 (13.0-17.5) gm/dL Hct 50.3 (39.0-53.0) % Result Diagrams: 08/27/22 07:15 08/27/22 07:15 Assessment and Plan Assessment: Assessment: Right knee pain Difficulty with ambulation on the right lower extremity due to knee pain Mild right knee swelling Increased pain with valgus stress of the right knee Right MCL strain versus possible tear Attempted suicide by hanging Nicotine dependence (1) Right medial knee pain Current Visit: Yes Status: Acute Code(s): M25.561 - PAIN IN RIGHT KNEE SNOMED Code(s): 8212337585 (2) Pain and swelling of right knee Current Visit: Yes Status: Acute Code(s): M25.561 - PAIN IN RIGHT KNEE; M25.461 - EFFUSION, RIGHT KNEE SNOMED Code(s): 9128297314 (3) Suicide attempt by hanging Current Visit: Yes Status: Acute Code(s): T71.162A - ASPHYXIATION DUE TO HANGING, INTENTIONAL SELF-HARM, INIT SNOMED Code(s): 248767565 (4) Current every day smoker Current Visit: Yes Status: Acute Code(s): F17.200 - NICOTINE DEPENDENCE, UNSPECIFIED, UNCOMPLICATED SNOMED Code(s): 241060034 (5) Knee injury Current Visit: Yes Status: Acute Code(s): S89.90XA - UNSPECIFIED INJURY OF UNSPECIFIED LOWER LEG, INIT ENCNTR SNOMED Code(s): 825215727 Plan: Plan: 1. Patient states while sitting in a chair he twisted to the left on 08/27/2022 any heard a pop and felt a pop in his right knee. The pain is in his right medial knee radiating towards the posterior right knee. Since that time he has had some mild swelling at the right knee. He has difficulty with straightening his right knee. He is ambulating with a limp on the right lower extremity. X- ray imaging of the right knee does not show evidence of obvious fracture at the right knee, no significant osteoarthritis of the right knee, and no significant swelling or effusion of the right knee. He does have increased pain in his right medial knee with valgus stress. We did discuss he could have an injury with either strain versus possible tear of his right MCL. During this admission, we'll plan to continue conservative treatment. He is currently planning for discharge home tomorrow. We discussed he could benefit from ice over the right medial knee and elevation. We will also discuss he could have benefit with continued anti-inflammatory medication ibuprofen. We would recommend ibuprofen 600 mg 3 times a day. He does have some difficulty with pa in control. We'll plan to prescribe hydrocodone 5 mg/325 mg, 1 tablet every 8 hours as needed for pain during his admission. We're not planning for prescription for narcotic medication at the time of discharge. After further discussion, patient would like to follow-up in the outpatient setting. We'll currently planned to have him follow-up with Dr. Chad Nelson at [facility] on 08/31/2022 at 2:45 PM. We did discuss he may need further imaging of his right knee in the outpatient setting. Currently, patient is clear for discharge from an orthopedic standpoint. 2. Patient will continue to be seen and examined by psychology and medicine during his admission. Current plans are for discharge home tomorrow. Time with Patient: Greater than 30 (Including obtaining history, physical examination, reviewing of imaging, and dictation.)
[2022-08-29] MEDS: hydrOXYzine pamoate 25 MG CAP PO SCH (20:39)
[2022-08-30 06:38] VITALS: BP 106/57; PULSE 56; RESP 16; TEMP 98.1
[2022-08-30] MEDS: HYDROcodone/APAP 5-325MG 1 EACH TAB PO PRN (08:16)
[2022-08-30] MEDS: NICOTINE 21MG/24HR PATCH TRANSDERM SCH (08:16)
[2022-08-30] MEDS: lamoTRIgine 25 MG TAB PO SCH (08:17)
[2022-08-30] MEDS: NICOTINE GUM (POLACRILEX) 2 MG GUM BUCCAL PRN (08:17)
[2022-08-30] MEDS: SERTRALINE 50 MG TAB PO SCH (08:17)
[2022-08-30] MEDS: DICLOFENAC SODIUM GEL 100 GM TUBE TOPICAL SCH (08:45)
--- NOTE | 2022-08-30 10:45 | P.DS ---
Providers Date of admission: 08/27/22 05:07 Expected date of discharge: 08/30/22 Attending physician: Alfonzo Mora MD Consults: 08/27/22 05:19 Consult Physician Routine Consulting Provider: Rocio Cloud Consult Reason/Comments: For H & P for Medical Follow Up Do you want consulting provider notified?: Yes 08/29/22 13:10 Consult Physician Routine Consulting Provider: Nam Torres Consult Reason/Comments: Right Knee Trauma, swelling, Pain Do you want consulting provider notified?: Yes Primary care physician: Stated None - Discharge Diagnosis(es) (1) Depressive disorder Current Visit: Yes Status: Acute Priority: High (2) Suicide attempt by hanging Current Visit: Yes Status: Acute Priority: High (3) Nicotine dependence Current Visit: Yes Status: Acute Priority: Low Hospital Course: Admission HPI: Admission note was completed by loan underwriter "Patient is a 22-year-old male, currently lives with his sister, he has 2 kids, he works on a farm with horses. Patient presented to the hospital yesterday and evaluated in the ER. Patient was petitioned by foreign service officer who apparently was shown a video of patient attending to harm himself by hanging himself captured by his girlfriend after an argument. Patient was admitted involuntarily to the mental health unit last night. Patient was seen lying in bed today was agreeable to strict loan underwriter. Patient had a poor hygiene and grooming, constricted in his affect, poor eye contact. He was very evasive and guarded about his need for hospitalization and minimizing his suicide attempt. He claims that his girlfriend was lying about what had occurred. He claims that he was not trying to harm himself. He states that he was trying to "get away from her" and go to his sister's house. He states that the chief airline radio operator picked him up and brought him in the hospital and he does not know why. He does not need believe that he needs medications are treatment in the hospital. He states that he did twist his leg and popped his knee yesterday before coming into the hospital. He claims that he is "doing fine" denying any depression or anxiety at this time. He claims that he is sleeping fairly and has a fair appetite.. Very poor judgment and insight. Patient denies any suicidal or homicidal ideations intent or plan. At this time patient denies any auditory or visual hallucinations. Patient denies any flight of ideas racing thoughts and increased in goal directed behavior. Patient admits to using cigarettes only, patient refused to give UDS at this time." Hospital course: Upon admission to the unit patient was admitted involuntarily on a petition and certificate and a second certificate was completed and faxed with the courts. Patient ended up signing a deferral with the farmer general and agreeing to treatment. Patient was initially gaurded/evasive and kept to himself however with time and treatment he got along well with other patients on the unit and followed unit protocol. Patient was compliant with the medications and denied any side effects throughout hospital course. Patient was started on Zoloft 50 mg daily for mood/anxiety, Lamictal 25 mg twice a day for mood stabilization/depression. Straight Tooth Gear Generator Operator spoke with patient about the risk of possible rash from Lamictal and to continue monitoring his skin and also medication compliance the patient verbally understood and agreed. Patient spoke of his stressors and engaged in therapy both group and individual. Patient was also seen by medical team for history and physical exam. Patient did report an injury to his right knee before coming into the hospital and was treated with pain medications, a orthopeadics consultation was placed and recommended pain control and follow up at the clinic upon discharge. Patient did also have an xray of his knee which did not show any osseous pathology/fx. it was recommended to rest knee, elevate and ice as best as he could. Throughout the course of the hospitalization patient gradually improved with regards to mood, anxiety, sleep and became more future oriented with improved insight and judgment. On the day of discharge patient denied any suicidal or homicidal ideations intent or plan denied any auditory or visual hallucinations. Patient endorsed wanting to live for his health, kids and family. The patient denied any access to guns or weapons. Patient denied any paranoia and did not endorse any delusions. Patient does not have a significant history of substance abuse and was counseled on abstaining from all substances including alcohol and marijuana. Patient was also counseled on the medications and need for regular compliance and was encouraged to follow-up with their outpatient appointment for mental health and also for primary care. Prior to discharge a family meeting will be arranged by social services analyst to answer any questions and ensure safety upon discharge. patient will be discharged to his [facility] house. Mental status exam: General Appearance: Patient appears to be short in stature, thin, multiple tattoos, stated age is alert, pleasant, and cooperative. Patient is in no acute distress and has improved hygiene and grooming Behavior: Patient is calmly seated without any agitated behavior. Speech: Patient's speech is fluent and nonpressured. Mood/Affect: Patient reports their mood is "better", affect is congruent and euthymic. Suicidality/Homicidality: Patient denies having any suicidal or homicidal ideation intent or plan. Perceptions: Patient denies any auditory or visual hallucinations. Though content/process: There is no evidence of any delusional thought content and thought process is linear and goal-directed. more future oriented Memory and concentration: AOX3, grossly intact for the purposes of this session. Can spell "WORLD" backwards correctly. Judgment and insight: improved with guarded prognosis Impression: Depressive disorder unspecified suicide attempt by hanging Nicotine dependence Plan: -Continue with discharge today as patient has improved and stabilized psychiatrically and is not currently an imminent threat to himself and/or ot hers. Patient will remain at chronically elevated risk for harm to self and/or others due to his impulsivity and hx of self harm/suicide attempt. -Continue medications: Zoloft 50 mg daily for mood/anxiety, Lamictal 25 mg twice a day for mood stabilization/depression -Patient was counseled on the need for medication compliance and appropriate follow-up at mental health and also primary care for medical issues. Patient verbalized understanding and agreed. -Social work to arrange for and conduct family meeting to ensure safety upon discharge and answer any questions/concerns. Social work also to arrange for patients follow up appointments with [facility] for psychiatric care along with follow up with primary care provider. Patient is also set for an appointment with [facility] for f/u of knee injury -Patient counseled on abstaining from recreational drugs and marijuana and alcohol. Was informed/educated on the adverse effects on their physical and mental health. Patient verbally agreed and understood. -Patient was instructed to return to the hospital or seek immediate medical care if their psychiatric or medical symptoms do worsen or reoccur. Allergies Allergy/AdvReac Type Severity Reaction Status Date / Time No Known Allergies Allergy Verified 08/27/22 05:25 Laboratory Results WBC 13.7 k/uL (3.8-10.6) H 08/27/22 07:15 RBC 5.24 m/uL (4.30-5.90) 08/27/22 07:15 Hgb 16.6 gm/dL (13.0-17.5) 08/27/22 07:15 Hct 50.3 % (39.0-53.0) 08/27/22 07:15 MCV 96.0 fL (80.0-100.0) 08/27/22 07:15 MCH 31.6 pg (25.0-35.0) 08/27/22 07:15 MCHC 32.9 g/dL (31.0-37.0) 08/27/22 07:15 RDW 12.4 % (11.5-15.5) 08/27/22 07:15 Plt Count 305 k/uL (150-450) 08/27/22 07:15 MPV 7.7 08/27/22 07:15 Neutrophils % 76 % 08/27/22 07:15 Lymphocytes % 15 % 08/27/22 07:15 Monocytes % 6 % 08/27/22 07:15 Eosinophils % 1 % 08/27/22 07:15 Basophils % 0 % 08/27/22 07:15 Neutrophils # 10.4 k/uL (1.3-7.7) H 08/27/22 07:15 Lymphocytes # 2.1 k/uL (1.0-4.8) 08/27/22 07:15 Monocytes # 0.8 k/uL (0-1.0) 08/27/22 07:15 Eosinophils # 0.1 k/uL (0-0.7) 08/27/22 07:15 Basophils # 0.0 k/uL (0-0.2) 08/27/22 07:15 Sodium 140 mmol/L (137-145) 08/27/22 07:15 Potassium 4.6 mmol/L (3.5-5.1) 08/27/22 07:15 Chloride 102 mmol/L (98-107) 08/27/22 07:15 Carbon Dioxide 27 mmol/L (22-30) 08/27/22 07:15 Anion Gap 11 mmol/L 08/27/22 07:15 BUN 9 mg/dL (9-20) 08/27/22 07:15 Creatinine 0.91 mg/dL (0.66-1.25) 08/27/22 07:15 Est GFR (CKD-EPI)AfAm >90 (>60 ml/min/1.73 sqM) 08/27/22 07:15 Est GFR (CKD-EPI)NonAf >90 (>60 ml/min/1.73 sqM) 08/27/22 07:15 Glucose 104 mg/dL (74-99) H 08/27/22 07:[address] Glu mg/dL 108 mg/dL 08/27/22 07:15 Hemoglobin A1c 5.4 % (<=6.0) 08/27/22 07:15 Calcium 9.8 mg/dL (8.4-10.2) 08/27/22 07:15 Total Bilirubin 0.9 mg/dL (0.2-1.3) 08/27/22 07:15 Conjugated Bilirubin 0.0 mg/dL (0.0-0.3) 08/27/22 07:15 Unconjugated Bilirubin 0.7 mg/dL (0.0-1.1) 08/27/22 07:15 Delta Bilirubin 0.2 mg/dL (0.0-0.2) 08/27/22 07:15 AST 28 U/L (17-59) 08/27/22 07:15 ALT 26 U/L (4-49) 08/27/22 07:15 Alkaline Phosphatase 63 U/L (38-126) 08/27/22 07:15 Total Protein 7.8 g/dL (6.3-8.2) 08/27/22 07:15 Albumin 4.9 g/dL (3.5-5.0) 08/27/22 07:15 Triglycerides 55.90 mg/dL (0.00-149.00) 08/27/22 07:15 Cholesterol 134.00 mg/dL (0.00-200.00) 08/27/22 07:15 LDL Cholesterol, Calc 68.2 mg/dL (0.0-131.0) 08/27/22 07:15 VLDL Cholesterol, Calc 11.18 mg/dL (5.00-40.00) 08/27/22 07:15 HDL Cholesterol 54.60 mg/dL (40.00-60.00) 08/27/22 07:15 Cholesterol/HDL Ratio 2.45 Ratio 08/27/22 07:15 Coronavirus (PCR) Not Detected (Not Detectd) 08/27/22 03:45 Vital Signs Temp 98.1 F 08/30/22 06:37 Pulse 56 L 08/30/22 06:37 Resp 16 08/30/22 06:37 BP 106/57 08/30/22 06:37 Pulse Ox 97 08/30/22 06:37 FiO2 Health Concerns: Follow up with Orthopedics within one week for evaluation of right knee. Patient Condition at Discharge: Undetermined Plan - Discharge Summary Discharge Rx Participant: Yes New Discharge Prescriptions: New lamoTRIgine [LaMICtal] 25 mg PO BID 30 Days #60 tab Acetaminophen Tab [Tylenol] 650 mg PO Q6HR PRN 30 Days #240 tab PRN Reason: Mild Pain (Scale 1 To 3) Sertraline [Zoloft] 50 mg PO DAILY 30 Days #30 tab Nicotine 21Mg/24Hr Patch [Habitrol] 1 patch TRANSDERM DAILY 14 Days #14 patch Ibuprofen [Motrin] 600 mg PO Q8H PRN 30 Days #90 tab PRN Reason: Moderate To Severe Pain (4-10) Albuterol Inhaler [Ventolin Hfa Inhaler] 2 puff INHALATION RT-QID PRN #1 each PRN Reason: Shortness Of Breath Or Wheezing hydrOXYzine pamoate [Vistaril] 50 mg PO HS 30 Days #60 cap Diclofenac Sodium Gel [Voltaren Gel] 4 gm TOPICAL QID 30 Days #1 gm Discontinued Amoxicillin 500 mg PO BID 10 Days #20 capsule Ibuprofen [Motrin] 600 mg PO Q8HR PRN #20 tab PRN Reason: Pain Discharge Medication List Acetaminophen Tab [Tylenol] 650 mg PO Q6HR PRN 30 Days #240 tab 08/30/22 [Rx] Albuterol Inhaler [Ventolin Hfa Inhaler] 2 puff INHALATION RT-QID PRN #1 each 08/30/22 [Rx] Diclofenac Sodium Gel [Voltaren Gel] 4 gm TOPICAL QID 30 Days #1 gm 08/30/22 [Rx] Ibuprofen [Motrin] 600 mg PO Q8H PRN 30 Days #90 tab 08/30/22 [Rx] Nicotine 21Mg/24Hr Patch [Habitrol] 1 patch TRANSDERM DAILY 14 Days #14 patch 08/30/22 [Rx] Sertraline [Zoloft] 50 mg PO DAILY 30 Days #30 tab 08/30/22 [Rx] hydrOXYzine pamoate [Vistaril] 50 mg PO HS 30 Days #60 cap 08/30/22 [Rx] lamoTRIgine [LaMICtal] 25 mg PO BID 30 Days #60 tab 08/30/22 [Rx] Follow up Appointment(s)/Referral(s): [facility] [Provider Group] - 08/31/22 2:45 pm (Patient will follow up with Dr. Chad Nelson at [facility] on 08/31/2022 at 2:45 PM.) [facility] Patient Instructions/Handouts: Knee Pain (GEN) Activity/Diet/Wound Care/Special Instructions: Avoid the use of street drugs and alcohol. Take all medications as prescribed. When you are in need of refills on your medications, please contact your medical provider and/or outpatient psychiatrist to have this done. Please go to scheduled outpatient appointments for aftercare treatment. If symptoms return or become worse, call the crisis line at and/or go to the nearest emergency room for evaluation. 1. Patient is encouraged to elevate and apply ice over the right knee for comfort support as needed 2. Avoid running and excessive activities with the right knee Discharge Disposition: HOME SELF-CARE
== END 2022-08-30 12:30 | disposition home or self-care (01) | DRG 754 ==
LOC: EC 02:22 → 3MHU 05:07
PROVIDERS: ADMIT Psychiatry & Neurology Psychiatry; ATTEND Psychiatry & Neurology Psychiatry
DX: F32.A Depression, unspecified (principal); Z28.310 Unvaccinated for COVID-19; Z20.822 Contact with and (suspected) exposure to COVID-19; F90.9 Attention-deficit hyperactivity disorder, unspecified type; F17.290 Nicotine dependence, other tobacco product, uncomplicated; X50.9XXA Other and unspecified overexertion or strenuous movements or postures, initial encounter; S83.411A Sprain of medial collateral ligament of right knee, initial encounter; F41.9 Anxiety disorder, unspecified; T71.162A Asphyxiation due to hanging, intentional self-harm, initial encounter; Z79.899 Other long term (current) drug therapy; Z91.51 Personal history of suicidal behavior
CPT/HCPCS: 80053; 80061; 82075; 82248; 83036; 85025; 87635

== ENCOUNTER 2024-04-13 12:23 | Emergency (ER) | payer OTHER ==
[2024-04-13 12:41] VITALS: BP 155/79; PULSE 70; RESP 20; TEMP 98.1
--- NOTE | 2024-04-13 13:19 | ED ---
General Adult HPI - General Chief complaint: Extremity Injury, Lower Stated complaint: rt knee injury Time Seen by Provider: 04/13/24 12:44 Source: patient Mode of arrival: ambulatory Limitations: no limitations - History of Present Illness Initial comments: Patient is a 23-year-old male present to the emergency department with right knee pain. Patient had an injury at [facility] less than a week ago. Patient does have history of similar previous injury with ACL repair less than a year ago. Discomfort is right knee. No other area of injury or concern. Patient is ambulatory with pain. - Related Data Home Medications Medication Instructions Recorded Confirmed HYDROcodone/APAP 5-325MG [Blanchard 1 tab PO Q6HR PRN 11/02/22 11/02/22 5-325] Previous Rx's Medication Instructions Recorded Aspirin [Adult Low Dose Aspirin EC] 81 mg PO DAILY #14 tab 11/08/22 HYDROcodone/APAP 7.5-325MG [Blanchard 1 - 2 each PO Q6HR PRN #15 tab 11/08/22 7.5-325] Ondansetron [Zofran] 4 mg PO Q8HR PRN #10 tab 11/08/22 Allergies Allergy/AdvReac Type Severity Reaction Status Date / Time No Known Allergies Allergy Verified 04/13/24 12:41 Review of Systems ROS Statement: Those systems with pertinent positive or pertinent negative responses have been documented in the HPI. ROS Other: All systems not noted in ROS Statement are negative. Constitutional: Denies: fever Eyes: Denies: eye pain ENT: Denies: ear pain Respiratory: Denies: cough Cardiovascular: Denies: chest pain Endocrine: Denies: fatigue Gastrointestinal: Denies: abdominal pain Musculoskeletal: Reports: as per HPI Past Medical History Past Medical History: Asthma Additional Past Medical History / Comment(s): poor historian History of Any Multi-Drug Resistant Organisms: None Reported Past Surgical History: No Surgical Hx Reported, Joint Replacement, Orthopedic Surgery Additional Past Surgical History / Comment(s): poor historian Past Anesthesia/Blood Transfusion Reactions: No Reported Reaction Past Psychological History: No Psychological Hx Reported Smoking Status: Vaper Past Alcohol Use History: None Reported Past Drug Use History: Marijuana General Exam Limitations: no limitations General appearance: alert, in no apparent distress Head exam: Present: normocephalic Eye exam: Present: normal appearance Neck exam: Present: normal inspection. Absent: tenderness Respiratory exam: Present: normal lung sounds bilaterally Cardiovascular Exam: Present: regular rate, normal rhythm Expanded Peripheral pulses: 2+: Posterior Tibialis (R) GI/Abdominal exam: Present: soft. Absent: tenderness Extremities exam: Present: tenderness (Right knee. Tenderness and laxity with medial strain). Absent: calf tenderness Neurological exam: Present: alert. Absent: motor sensory deficit Psychiatric exam: Present: normal affect, normal mood Skin exam: Present: normal color Course Vital Signs 04/13/24 12:39 Temperature 98.1 F Pulse Rate 70 Respiratory 20 Rate Blood Pressure 155/79 O2 Sat by Pulse 99 Oximetry Medical Decision Making - Medical Decision Making Was pt. sent in by a medical professional or institution (, PA, [employer], urgent care, hospital, or fpc...) When possible be specific @ -No Did you speak to anyone other than the patient for history (EMS, parent, family, police, friend...)? What history was obtained from this source @ -No Did you review nursing and triage notes (agree or disagree)? Why? @ -I reviewed and agree with nursing and triage notes Were old charts reviewed (outside hosp., previous admission, EMS record, old EKG, old radiological studies, urgent care reports/EKG's, fpc records)? Report findings @ -No old charts were reviewed Differential Diagnosis (chest pain, altered mental status, abdominal pain women, abdominal pain men, vaginal bleeding, weakness, fever, dyspnea, syncope, headache, dizziness, GI bleed, back pain, seizure, CVA, palpatations, mental health, musculoskeletal)? @ -Differential Musculoskeletal Muscular strain, contusion, ligament sprain, fracture, arthritis, septic arthritis, bursitis, cellulitis, muscle spasm, nerve compression, DVT, arterial occlusion, herpes zoster, electrolyte abnormality, tumor.... This is not meant to be in all inclusive list EKG interpreted by me (3pts min.). @ -As above X-rays interpreted by me (1pt min.). @ -X-ray right knee shows no acute abnormality CT interpreted by me (1pt min.). @ -None done U/S interpreted by me (1pt. min.). @ -None done What testing was considered but not performed or refused? (CT, X-rays, U/S, labs)? Why? @ -None What meds were considered but not given or refused? Why? @ -None Did you discuss the management of the patient with other professionals (professionals i.e. DrKurtis, PA, [employer], lab, RT, psych nurse, forensic social worker, armature balancer, teacher, chief resource officer, gearcase assembler)? Give summary @ -No Was smoking cessation discussed for >3mins.? @ -No Was critical care preformed (if so, how long)? @ -No Were there social determinants of health that impacted care today? How? (Homelessness, low income, unemployed, alcoholism, drug addiction, transpor tation, low edu. Level, literacy, decrease access to med. care, usp, rehab)? @ -No Was there de-escalation of care discussed even if they declined (Discuss DNR or withdrawal of care, Hospice)? DNR status @ -No What co-morbidities impacted this encounter? (DM, HTN, Smoking, COPD, CAD, Cancer, CVA, ARF, Chemo, Hep., AIDS, mental health diagnosis, sleep apnea, morbid obesity)? @ -History of previous injury with ACL repair Was patient admitted / discharged? Hospital course, mention meds given and route, prescriptions, significant lab abnormalities, going to OR and other pertinent info. @ -Patient presents with right knee injury during [facility]. Patient has laxity and discomfort with medial stress. Concern for repeat ACL injury. Patient will be discharged with follow-up with orthopedics. Patient previously seen Dr. Nelson. Patient does have a knee brace at home that is he is recommended to wear. Undiagnosed new problem with uncertain prognosis? @ -No Drug Therapy requiring intensive monitoring for toxicity (Heparin, Nitro, Insulin, Cardizem)? @ -No Were any procedures done? @ -No Diagnosis/symptom? @ -Right knee injury Acute, or Chronic, or Acute on Chronic? @ -Acute Uncomplicated (without systemic symptoms) or Complicated (systemic symptoms)? @ -Default Side effects of treatment? @ -No Exacerbation, Progression, or Severe Exacerbation? @ -No Poses a threat to life or bodily function? How? (Chest pain, [place], [place], pneumonia, PE, COPD, DKA, ARF, appy, cholecystitis, CVA, Diverticulitis, Homicidal, Suicidal, threat to staff... and all critical care pts) @ -No Disposition Clinical Impression: Knee injury Disposition: HOME SELF-CARE Condition: Stable Instructions (If sedation given, give patient instructions): Knee Pain (ED) Additional Instructions: Please do follow-up with orthopedics in the next couple of days for recheck, number provided. Ice to affected area. [id number] Motrin as needed. Return for increased pain, swelling, worsening symptoms or other concerns. Please use your knee brace. Is patient prescribed a controlled substance at d/c from ED?: No Referrals: Manuela Rouse MD [Primary Care Provider] - 1-2 days Time of Disposition: 14:16
[2024-04-13] MEDS: KETOROLAC 15 MG/ML 1 ML VIAL IM STA (13:38)
--- NOTE | 2024-04-13 13:42 | XR ---
EXAMINATION TYPE: XR knee complete RT DATE OF EXAM: 04/13/2024 1:34 PM COMPARISON: None. CLINICAL INDICATION: Male, 23 years old with history of injury, pain TECHNIQUE: XR knee complete RT XX views were obtained. FINDINGS: There is no acute fracture/dislocation. The tri-compartment joint spaces appear within normal limits . Small joint effusion. Changes of ACL reconstruction. The overlying soft tissue appears unremarkabl e. IMPRESSION: No acute fracture or dislocation [facility], , 04/13/2024 1:39 PM
[2024-04-13] MEDS: ACET/COD 300 MG/30 MG STARTER PACK 6 TAB BTL PO STA (14:20)
== END 2024-04-13 14:25 | disposition home or self-care (01) ==
LOC: EC 12:23
DX: S89.91XA Unspecified injury of right lower leg, initial encounter (principal); F17.290 Nicotine dependence, other tobacco product, uncomplicated; X58.XXXA Exposure to other specified factors, initial encounter
CPT/HCPCS: 99283 ×2; 96372; 73562; J1885